=== PATIENT | male | born 1990 ===

== ENCOUNTER 2017-11-19 10:37 | Emergency (ER) | payer OTHER ==
[2017-11-19 10:47] VITALS: BP 114/72; PULSE 64; RESP 16; TEMP 98.2; O2SAT 100
--- NOTE | 2017-11-19 11:12 | RAD ---
PROCEDURE: Radiographs of the left elbow. HISTORY: PAIN, BRUISING COMPARISON: No prior. FINDINGS: BONES: No acute fracture. JOINTS: Unremarkable. SOFT TISSUES: Normal. JOINT EFFUSION: None. OTHER FINDINGS: None IMPRESSION: No demonstrated fracture or dislocation.
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
== END 2017-11-19 11:53 | disposition home or self-care (01) ==
LOC: C.ER 10:37
DX: S50.02XA Contusion of left elbow, initial encounter (principal); V89.2XXA Person injured in unspecified motor-vehicle accident, traffic, initial encounter